=== PATIENT | male | born 1965 | race African-American/Black ===

== ENCOUNTER 2016-12-29 08:38 | Inpatient (IN) | payer OTHER ==
[2016-12-29 08:58] VITALS: BMI 25.8
--- NOTE | 2016-12-29 10:42 | HP ---
CIWA Score - CIWA Score Nausea/Vomitin Muscle Tremors: 3 Anxiety: 3 Agitation: 4-Moderately Restless Paroxysmal Sweats: 3 Orientation: 0-Oriented Tacttile Disturbances: 1-Very Mild Itch/Numbness Auditory Disturbances: 0-None Visual Disturbances: 0-None Headache: 1-Very Mild CIWA-Ar Total Score: 18 Admission ROS BHS - HPI Chief Complaint: alcohol withdrawal syndrome Allergies/Adverse Reactions: Allergies Allergy/AdvReac Type Severity Reaction Status Date / Time egg Allergy Severe Swelling Verified 12/29/16 10:14 No Known Drug Allergies Allergy Verified 12/29/16 10:14 History of Present Illness: 51 yo m with h/o alcohol use disorder, last detox at [facility] last year, now presenting requesting alcohol detox because of ELLIE. sweats, tremors, POLK. PMHX nicotine, cannabis dependence, HTN, asthma, no psychiatric history requesting psych eval. Has not been taking meds, c/o back pain. no h/o DTS or suicide attempts in past no suicidal ideation at present. craving has urges wants to go to rehab Exam Limitations: No Limitations - Ebola screening Have you traveled outside of the country in the last 21 days: No Have you had contact with anyone from an Ebola affected area: No Have you been sick,other than usual withdrawal symptoms: No Do you have a fever: No - Review of Systems Constitutional: Chills, Diaphoresis, Malaise, Night Sweats, Weight Stable EENT: reports: No Symptoms Reported Respiratory: reports: Wheezing (astham history) Cardiac: reports: No Symptoms Reported GI: reports: Nausea, Poor Appetite, Poor Fluid Intake : reports: No Symptoms Reported Musculoskeletal: reports: Back Pain (chronic pain) Integumentary: reports: Flushing, Sweating Endocrine: reports: No Symptoms Reported Hematology: reports: No Symptoms Reported Psychiatric: reports: Judgement Intact, Mood/Affect Appropiate, Orientated x3, Anxious, Depressed Other Systems: Reviewed and Negative Patient History - Patient Medical History Hx Anemia: No Hx Asthma: Yes Hx Chronic Obstructive Pulmonary Disease (COPD): No Hx Cancer: No Hx Cardiac Disorders: No Hx Congestive Heart Failure: No Hx Hypertension: Yes (Pt is on meds but is non compliant) Hx Hypercholesterolemia: No Hx Pacemaker: No HX Cerebrovascular Accident: No Hx Seizures: No (no h/o DTS) Hx Dementia: No Hx Diabetes: No Hx Gastrointestinal Disorders: No Hx Liver Disease: No Hx Genitourinary Disorders: No Hx Sexually Transmitted Disorders: No Hx Renal Disease (ESRD): No Hx Thyroid Disease: No Hx Human Immunodeficiency Virus (HIV): No Hx Hepatitis C: No Hx Depression: No Hx Suicide Attempt: No Hx Bipolar Disorder: No Hx Schizophrenia: No - Patient Surgical History Past Surgical History: Yes Hx Abdominal Surgery: (umbililcal hernia rep[air as child) Anesthesia Reaction: No - PPD History Previous Implant?: Yes Documented Results: Negative w/o proof Implanted On Prior [facility] Admission?: No PPD to be Administered?: Yes - Reproductive History Patient is a Female of Child Bearing Age (11 -55 yrs old): No Patient : No - Smoking Cessation Smoking history: Current every day smoker Have you smoked in the past 12 months: Yes Aproximately how many cigarettes per day: 20 Hx Chewing Tobacco Use: No Initiated information on smoking cessation: Yes 'Breaking Loose' booklet given: 12/29/16 - Substance & Tx. History Hx Alcohol Use: Yes Hx Substance Use: Yes Substance Use Type: Alcohol, Marijuana Hx Substance Use Treatment: Yes ([facility] 2016) - Substances Abused Alcohol Route: Oral Frequency: Daily Amount used: fifth of vodka/ 6pk beer and up Age of first use: 17 Date of Last Use: 12/29/16 Marijuana/Hashish Route: Smoking Frequency: Daily Amount used: 1 ounce Age of first use: 20 Date of Last Use: 12/27/16 Family Disease History - Family Disease History Family Disease History: Heart Disease: Father (HTN) Admission Physical Exam [facility] - Vital Signs Vital Signs: Vital Signs - 24 hr 12/29/16 08:54 Temperature 97.1 F L Pulse Rate 100 H Respiratory 18 Rate Blood Pressure 150/109 - Physical General Appearance: Yes: Nourished, Disheveled, Mild Distress, Obese, Irritable , Sweating, Anxious HEENTM: Yes: Within Normal Limits, EOMI, Hearing grossly Normal, Normal ENT Inspection, Normocephalic, Normal Voice, MERLE, Pharynx Normal Respiratory: Yes: Within Normal Limits, Chest Non-Tender, Lungs Clear, Normal Breath Sounds, No Respiratory Distress, No Accessory Muscle Use Neck: Yes: Within Normal Limits, No masses,lesions,Nodules, Supple, Trachea in good position Breast: Yes: Breast Exam Deferred Cardiology: Yes: Within Normal Limits, Regular Rhythm, Regular Rate, S1, S2 Abdominal: Yes: Normal Bowel Sounds, Non Tender, Soft, Protuberent, Distended Genitourinary: Yes: Within Normal Limits Back: Yes: Within Normal Limits, Normal Inspection Musculoskeletal: Yes: full range of Motion, Gait Steady, Pelvis Stable, Back pain, Muscle Pain (tender on palpation lower back) Extremities: Yes: Normal Capillary Refill, Normal Range of Motion, Non-Tender, Tremors Neurological: 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: 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 NML intact, Fully Oriented, Alert, Motor Strength 5/5, Depressed Affect Integumentary: Yes: Normal Color, Warm, Diaphoresis Lymphatic: Yes: Within Normal Limits - Addiitonal Findings: alcohol withdrawal sx present - Diagnostic (1) Alcohol dependence with uncomplicated withdrawal Current Visit: Yes Status: Acute (2) Cannabis dependence Current Visit: Yes Status: Acute (3) Nicotine dependence Current Visit: Yes Status: Acute (4) Asthma Current Visit: Yes Status: Acute (5) Hypertension Current Visit: Yes Status: Acute (6) Insomnia Current Visit: Yes Status: Acute (7) Back pain Current Visit: Yes Status: Acute Cleared for Admission [facility] - Detox or Rehab [facility] Level of Care: Medically Managed Detox Regimen/Protocol: Librium [facility] Breath Alcohol Content Breath Alcohol Content: 0.089 Urine Drug Screen - Results Drug Screen Negative: No Urine Drug Screen Results: THC-Marijuana
[2016-12-29] MEDS ORDERED: hydrOXYzine PAMOATE 50 MG CAPSULE (FP) PO PRN (10:48)
[2016-12-29] MEDS ORDERED: LOPERAMIDE HCL 2 MG CAPSULE PO PRN (10:48)
[2016-12-29] MEDS ORDERED: MENTHOL/PHENOL 1 EACH UD MM PRN (10:48)
[2016-12-29] MEDS ORDERED: P-EPHED 60MG/TRIPROLIDI 2.5MG TABLET PO PRN (10:48)
[2016-12-29] MEDS ORDERED: diphenhydrAMINE HCL 50 MG CAPSULE PO PRN (10:48)
[2016-12-29] MEDS ORDERED: MAGNESIUM CITRATE 300 ML BOTTLE PO PRN (10:48)
[2016-12-29] MEDS ORDERED: MAGNESIUM HYDROX 2400MG/30ML ORAL SUSPENSION 30 ML CUP PO PRN (10:48)
[2016-12-29] MEDS ORDERED: NICOTINE POLACRILEX 2 MG GUM BUC PRN (10:48)
[2016-12-29] MEDS ORDERED: guaiFENesin/D-METHORPHAN HB 10 ML UNIT-DOSE CUPS PO PRN (10:48)
[2016-12-29] MEDS ORDERED: MAG HYDROX/AL HYDROX/SIMETH 30 ML UNIT-DOSE CUP PO PRN (10:48)
[2016-12-29] MEDS ORDERED: chlordiazePOXIDE HCL 25 MG CAPSULE PO PRN (10:48)
[2016-12-29] MEDS ORDERED: ACETAMINOPHEN 325 MG TABLET (FP) PO PRN (10:48)
[2016-12-29] MEDS ORDERED: PATIENT'S OWN MEDICATION (NON-FORMULARY) (Fluticasone Propionate [Flovent Diskus] 110 MCG) IH SCH (11:00)
[2016-12-29] MEDS ORDERED: CYCLOBENZAPRINE HCL 5 MG TABLET PO ONE (11:55)
[2016-12-29] MEDS: amLODIPine BESYLATE 10 MG TABLET (FP) PO SCH (12:59)
[2016-12-29] MEDS: NICOTINE 14 MG/24 HOURS TOPICAL PATCH TD SCH (13:06)
[2016-12-29] MEDS: CYCLOBENZAPRINE HCL 5 MG TABLET PO SCH ×2 (14:21→22:06)
[2016-12-29] MEDS: IBUPROFEN 400 MG TABLET (FP) PO PRN (14:21)
[2016-12-29] MEDS: TOLNAFTATE 1% CREAM 15 GM TUBE TP SCH ×2 (14:23→22:06)
--- NOTE | 2016-12-29 14:52 | EKG ---
Test Reason : Blood Pressure : / mmHG Vent. Rate : 091 BPM Atrial Rate : 091 BPM P-R Int : 154 ms QRS Dur : 078 ms QT Int : 352 ms P-R-T Axes : 057 049 237 degrees QTc Int : 432 ms NORMAL SINUS RHYTHM POSSIBLE LEFT ATRIAL ENLARGEMENT LEFT VENTRICULAR HYPERTROPHY CANNOT RULE OUT SEPTAL INFARCT , AGE UNDETERMINED ABNORMAL ECG NO PREVIOUS ECGS AVAILABLE Confirmed by REYNALDO FIGUEROA MD ([id number]) on 12/29/2016 2:52:35 PM Referred By: Confirmed By:REYNALDO FIGUEROA MD
--- NOTE | 2016-12-29 15:11 | CONSULT ---
[facility] Psychiatric Consult - Data Date of interview: 12/29/16 Admission source: [facility] Identifying data: First admission to [facility] for this 51 y/o AA male seeking detox treatment on for alcohol and marihuana dependence.Patient is single,a father of six,homeless,unemployed and supported on Public Assistance. Substance Abuse History: Confirmed by the patient in this interview. Smoking history: Current every day smoker. Have you smoked in the past 12 months: Yes. Aproximately how many cigarettes per day: 20. Hx Chewing Tobacco Use: No. Initiated information on smoking cessation: Yes. 'Breaking Loose' booklet given : 12/29/16. - Substance & Tx. History. Hx Alcohol Use: Yes. Hx Substance Use : Yes. Substance Use Type: Alcohol, Marijuana. Hx Substance Use Treatment: Yes ([facility]). - Substances Abused. Alcohol. Route: Oral. Frequency: Daily. Amount used: fifth of vodka/ 6pk beer and up. Age of first use: 17. Date of Last Use: 12/29/16. Marijuana/Hashish. Route: Smoking. Frequency: Daily. Amount used: 1 ounce. Age of first use: 20. Date of Last Use: 12/27/16 Medical History: Hypertension,bronchial asthma,hernias (umbilical + left inguinal) and a history of right knee injury (patient wears brace). Psychiatric History: Patient denies. Physical/Sexual Abuse/Trauma History: Patient denies. Additional Comment: Urine Drug Screen Results: THC-Marijuana.Noted. Mental Status Exam - Mental Status Exam Alert and Oriented to: Time, Place, Person Cognitive Function: Good Patient Appearance: Well Groomed Mood: Hopeful, Euthymic Affect: Appropriate, Normal Range Patient Behavior: Fatigued, Appropriate, Cooperative Speech Pattern: Clear, Artificially Ventilated Thought Process: Intact, Goal Oriented Thought Disorder: Not Present Hallucinations: Denies Suicidal Ideation: Denies Homicidal Ideation: Denies Insight/Judgement: Poor Sleep: Poorly, Difficulty falling asleep Appetite: Good Muscle strength/Tone: Normal Gait/Station: Normal Psychiatric Findings - Problem List ([place] 1, 2,3) (1) Alcohol dependence with uncomplicated withdrawal Current Visit: Yes Status: Acute (2) Cannabis dependence Current Visit: Yes Status: Acute (3) Nicotine dependence Current Visit: Yes Status: Acute (4) Asthma Current Visit: Yes Status: Chronic (5) Back pain Current Visit: Yes Status: Chronic (6) Hypertension Current Visit: Yes Status: Chronic (7) Insomnia Current Visit: Yes Status: Acute - Initial Treatment Plan Initial Treatment Plan: Psychoeducation.Detoxification.Ambien 10 mg po hs prn.Patient is made aware of potential for parasomnias.He agrees with this careplan.Observation.
[2016-12-29 17:18] LABS: URINE APPEARANCE CLEAR; URINE BILIRUBIN NEGATIVE (NEGATIVE); URINE BLOOD NEGATIVE (NEGATIVE); URINE COLOR LTYELLOW; URINE GLUCOSE (UA) NEGATIVE (NEGATIVE); URINE KETONE NEGATIVE (NEGATIVE); URINE NITRITE NEGATIVE (NEGATIVE); URINE PROTEIN NEGATIVE (NEGATIVE); URINE UROBILINOGEN NEGATIVE mg/dL (0.2-1.0)
[2016-12-29] MEDS: chlordiazePOXIDE HCL 25 MG CAPSULE PO SCH ×2 (17:24→22:06)
[2016-12-29 21:33] LABS: URINE LEUK ESTERASE Negative (NEGATIVE)
[2016-12-29] MEDS: THIAMINE HCL 100 MG TABLET (FP) PO SCH (22:06)
[2016-12-29] MEDS: MONTELUKAST NA 10 MG TABLET PO SCH (22:06)
[2016-12-29] MEDS: ZOLPIDEM TARTRATE 10 MG TABLET (PARK CARE ONLY) PO PRN (22:08)
[2016-12-29] MEDS: ALBUTEROL SO4 18 GM HFA INHALER IH PRN (23:48)
[2016-12-30] MEDS: chlordiazePOXIDE HCL 25 MG CAPSULE PO SCH ×4 (06:18→22:16)
[2016-12-30] MEDS: CYCLOBENZAPRINE HCL 5 MG TABLET PO SCH ×3 (06:18→22:16)
[2016-12-30 10:04] LABS: MCH 20.4 pg (25.7-33.7); MCHC 29.4 g/dl (32.0-35.9); MEAN CELL VOLUME 69.4 fl (80-96); MEAN PLT VOLUME 8.8 fl (7.5-11.1); PLATELET COUNT 225 K/MM3 (134-434); RDW 21.5 % (11.9-15.9); WHITE BLOOD COUNT 3.8 K/mm3 (4.0-10.0)
[2016-12-30] MEDS: PRENATAL VITAMINS W/ FOLIC ACID TABLET (FP) PO SCH (10:07)
[2016-12-30] MEDS: amLODIPine BESYLATE 10 MG TABLET (FP) PO SCH (10:07)
[2016-12-30] MEDS: TOLNAFTATE 1% CREAM 15 GM TUBE TP SCH ×2 (10:07→22:17)
[2016-12-30] MEDS: NICOTINE 14 MG/24 HOURS TOPICAL PATCH TD SCH (10:08)
[2016-12-30 10:32] LABS: CALCIUM 8.3 mg/dL (8.5-10.1)
[2016-12-30 10:38] LABS: ALBUMIN 3.7 g/dl (3.4-5.0); ALK PHOS 136 U/L (45-117); ANION GAP 10 (8-16); BILIRUBIN,TOTAL 0.4 mg/dL (0.2-1.0); CO2 24 mmol/L (21-32); CREATININE 1.1 mg/dL (0.7-1.3); GLUCOSE,RANDOM 87 mg/dL (74-106); SGOT/AST 40 U/L (15-37); SGPT/ALT 57 U/L (12-78); TOT PROT 7.7 g/dl (6.4-8.2)
--- NOTE | 2016-12-30 11:17 | PN ---
[facility] CIWA - CIWA Score Nausea/Vomitin-No Nausea/No Vomiting Muscle Tremors: 4-Moderate,w/Arms Extend Anxiety: 3 Agitation: 2 Paroxysmal Sweats: 3 Orientation: 0-Oriented Tacttile Disturbances: 2-Mild Itch/Numbness/Burn Auditory Disturbances: 0-None Visual Disturbances: 2-Mild Sensitivity Headache: 0-None Present CIWA-Ar Total Score: 16 S Progress Note (SOAP) Subjective: Fatigue, Tremors, Sweating. Objective: PT. A & O X 3. NO ACUTE DISTRESS. 12/30/16 11:16 Vital Signs Temperature 96.5 F L 12/30/16 09:39 Pulse Rate 102 H 12/30/16 09:39 Respiratory Rate 18 12/30/16 09:39 Blood Pressure 153/106 12/30/16 09:39 O2 Sat by Pulse Oximetry (%) Laboratory Tests 12/29/16 12/29/16 12/30/16 11:20 15:30 05:30 WBC 3.8 L RBC 3.64 L Hgb 7.4 L Hct 25.3 L MCV 69.4 L MCH 20.4 L MCHC 29.4 L RDW 21.5 H Plt Count 225 MPV 8.8 Urine Color Ltyellow Urine Appearance Clear Urine pH 5.0 Ur Specific [place] 1.025 Urine Protein Negative Urine Glucose (UA) Negative Urine Ketones Negative Urine Blood Negative Urine Nitrite Negative Urine Bilirubin Negative Urine Urobilinogen Negative Ur Leukocyte Esterase Negative Hepatitis C Antibody 0.2 LABS NOTED. RESULTS OF RPR AND CMP PENDING. PT. DENIES ANY KNOWN HISTORY OF ANEMIA. PT. DENIES ANY UNUSUAL BLEEDING (WHILE BRUSHING TEETH, DURING BOWEL MOVEMENT, ETC.) 12/30/16 11:19 Assessment: 12/30/16 11:20 WITHDRAWAL SYMPTOMS. ANEMIA LEUKOPENIA. Plan: CONTINUE DETOX. FEOSOL, 325 MG PO TID WITH MEALS. REPEAT CBC ON 01/01/2017 FOR LOW ADMISSION VALUES.
[2016-12-30 12:30] LABS: SICKLE CELL SCREEN NEGATIVE (NEGATIVE)
[2016-12-30] MEDS: FERROUS SO4 325 MG TABLET (FP) PO SCH ×2 (13:59→18:03)
[2016-12-30] MEDS: ZOLPIDEM TARTRATE 10 MG TABLET (PARK CARE ONLY) PO PRN (22:16)
[2016-12-30] MEDS: THIAMINE HCL 100 MG TABLET (FP) PO SCH (22:16)
[2016-12-30] MEDS: MONTELUKAST NA 10 MG TABLET PO SCH (22:17)
[2016-12-31] MEDS: chlordiazePOXIDE HCL 25 MG CAPSULE PO SCH ×2 (05:43→10:23)
[2016-12-31] MEDS: CYCLOBENZAPRINE HCL 5 MG TABLET PO SCH ×3 (05:43→22:13)
[2016-12-31] MEDS: NICOTINE 14 MG/24 HOURS TOPICAL PATCH TD SCH (10:23)
[2016-12-31] MEDS: amLODIPine BESYLATE 10 MG TABLET (FP) PO SCH (10:23)
[2016-12-31] MEDS: FERROUS SO4 325 MG TABLET (FP) PO SCH ×3 (10:23→17:17)
[2016-12-31] MEDS: PRENATAL VITAMINS W/ FOLIC ACID TABLET (FP) PO SCH (10:23)
[2016-12-31] MEDS: TOLNAFTATE 1% CREAM 15 GM TUBE TP SCH ×2 (10:24→22:13)
--- NOTE | 2016-12-31 10:26 | PN ---
[facility] CIWA - CIWA Score Nausea/Vomitin-No Nausea/No Vomiting Muscle Tremors: 3 Anxiety: 4-Mod. Anxious/Guarded Agitation: 4-Moderately Restless Paroxysmal Sweats: 2 Orientation: 0-Oriented Tacttile Disturbances: 3-Moderate Itch/Numb/Burn Auditory Disturbances: 0-None Visual Disturbances: 0-None Headache: 0-None Present CIWA-Ar Total Score: 16 BHS Progress Note (SOAP) Subjective: ANXIETY,SWEATS,FATIGUE. Objective: 12/31/16 10:25 Vital Signs Temperature 96.9 F L 12/31/16 09:47 Pulse Rate 109 H 12/31/16 09:47 Respiratory Rate 18 12/31/16 09:47 Blood Pressure 146/100 12/31/16 09:47 O2 Sat by Pulse Oximetry (%) Laboratory Last Values WBC 3.8 K/mm3 (4.0-10.0) L 12/30/16 05:30 RBC 3.64 M/mm3 (4.00-5.60) L 12/30/16 05:30 Hgb 7.4 GM/dL (11.7-16.9) L 12/30/16 05:30 Hct 25.3 % (35.4-49) L 12/30/16 05:30 MCV 69.4 fl (80-96) L 12/30/16 05:30 MCH 20.4 pg (25.7-33.7) L 12/30/16 05:30 MCHC 29.4 g/dl (32.0-35.9) L 12/30/16 05:30 RDW 21.5 % (11.9-15.9) H 12/30/16 05:30 Plt Count 225 K/MM3 (134-434) 12/30/16 05:30 MPV 8.8 fl (7.5-11.1) 12/30/16 05:30 Sickle Cell Screen Negative (NEGATIVE) 12/30/16 05:30 Sodium 142 mmol/L (136-145) 12/30/16 05:30 Potassium 3.7 mmol/L (3.5-5.1) 12/30/16 05:30 Chloride 108 mmol/L (98-107) H 12/30/16 05:30 Carbon Dioxide 24 mmol/L (21-32) 12/30/16 05:30 Anion Gap 10 (8-16) 12/30/16 05:30 BUN 13 mg/dL (7-18) 12/30/16 05:30 Creatinine 1.1 mg/dL (0.7-1.3) 12/30/16 05:30 Creat Clearance w eGFR > 60 (>60) 12/30/16 05:30 Random Glucose 87 mg/dL (74-106) 12/30/16 05:30 Calcium 8.3 mg/dL (8.5-10.1) L 12/30/16 05:30 Total Bilirubin 0.4 mg/dL (0.2-1.0) 12/30/16 05:30 AST 40 U/L (15-37) H 12/30/16 05:30 ALT 57 U/L (12-78) 12/30/16 05:30 Alkaline Phosphatase 136 U/L (45-117) H 12/30/16 05:30 Total Protein 7.7 g/dl (6.4-8.2) 12/30/16 05:30 Albumin 3.7 g/dl (3.4-5.0) 12/30/16 05:30 Urine Color Ltyellow 12/29/16 15:30 Urine Appearance Clear 12/29/16 15:30 Urine pH 5.0 (5.0-8.0) 12/29/16 15:30 Ur Specific [place] 1.025 (1.005-1.025) 12/29/16 15:30 Urine Protein Negative (NEGATIVE) 12/29/16 15:30 Urine Glucose (UA) Negative (NEGATIVE) 12/29/16 15:30 Urine Ketones Negative (NEGATIVE) 12/29/16 15:30 Urine Blood Negative (NEGATIVE) 12/29/16 15:30 Urine Nitrite Negative (NEGATIVE) 12/29/16 15:30 Urine Bilirubin Negative (NEGATIVE) 12/29/16 15:30 Urine Urobilinogen Negative mg/dL (0.2-1.0) 12/29/16 15:30 Ur Leukocyte Esterase Negative (NEGATIVE) 12/29/16 15:30 RPR Titer Reactive 1:2 (NONREACTIVE) H 12/30/16 05:30 Hepatitis C Antibody 0.2 s/co ratio (0.0-0.9) 12/29/16 11:20 LAB NOTED [facility] PENDING Laboratory Last Values WBC 3.8 K/mm3 (4.0-10.0) L 12/30/16 05:30 RBC 3.64 M/mm3 (4.00-5.60) L 12/30/16 05:30 Hgb 7.4 GM/dL (11.7-16.9) L 12/30/16 05:30 Hct 25.3 % (35.4-49) L 12/30/16 05:30 MCV 69.4 fl (80-96) L 12/30/16 05:30 MCH 20.4 pg (25.7-33.7) L 12/30/16 05:30 MCHC 29.4 g/dl (32.0-35.9) L 12/30/16 05:30 RDW 21.5 % (11.9-15.9) H 12/30/16 05:30 Plt Count 225 K/MM3 (134-434) 12/30/16 05:30 MPV 8.8 fl (7.5-11.1) 12/30/16 05:30 Sickle Cell Screen Negative (NEGATIVE) 12/30/16 05:30 Sodium 142 mmol/L (136-145) 12/30/16 05:30 Potassium 3.7 mmol/L (3.5-5.1) 12/30/16 05:30 Chloride 108 mmol/L (98-107) H 12/30/16 05:30 Carbon Dioxide 24 mmol/L (21-32) 12/30/16 05:30 Anion Gap 10 (8-16) 12/30/16 05:30 BUN 13 mg/dL (7-18) 12/30/16 05:30 Creatinine 1.1 mg/dL (0.7-1.3) 12/30/16 05:30 Creat Clearance w eGFR > 60 (>60) 12/30/16 05:30 Random Glucose 87 mg/dL (74-106) 12/30/16 05:30 Calcium 8.3 mg/dL (8.5-10.1) L 12/30/16 05:30 Total Bilirubin 0.4 mg/dL (0.2-1.0) 12/30/16 05:30 AST 40 U/L (15-37) H 12/30/16 05:30 ALT 57 U/L (12-78) 12/30/16 05:30 Alkaline Phosphatase 136 U/L (45-117) H 12/30/16 05:30 Total Protein 7.7 g/dl (6.4-8.2) 12/30/16 05:30 Albumin 3.7 g/dl (3.4-5.0) 12/30/16 05:30 Urine Color Ltyellow 12/29/16 15:30 Urine Appearance Clear 12/29/16 15:30 Urine pH 5.0 (5.0-8.0) 12/29/16 15:30 Ur Specific [place] 1.025 (1.005-1.025) 12/29/16 15:30 Urine Protein Negative (NEGATIVE) 12/29/16 15:30 Urine Glucose (UA) Negative (NEGATIVE) 12/29/16 15:30 Urine Ketones Negative (NEGATIVE) 12/29/16 15:30 Urine Blood Negative (NEGATIVE) 12/29/16 15:30 Urine Nitrite Negative (NEGATIVE) 12/29/16 15:30 Urine Bilirubin Negative (NEGATIVE) 12/29/16 15:30 Urine Urobilinogen Negative mg/dL (0.2-1.0) 12/29/16 15:30 Ur Leukocyte Esterase Negative (NEGATIVE) 12/29/16 15:30 RPR Titer Reactive 1:2 (NONREACTIVE) H 12/30/16 05:30 T.pallidum Ab ([facility]HA) Reactive (NONREACTIVE) 12/30/16 05:30 Hepatitis C Antibody 0.2 s/co ratio (0.0-0.9) 12/29/16 11:20 PT REPORTS PREVIOUS TREATMENT WITH "3 SHOTS OF PENICILLIN". DENIES RE-EXPOSURE. Assessment: 12/31/16 10:25 WITHDRAWAL SX HX SYPHILIS WITH TREATMENT Plan: CONTINUE DETOX ON
[2016-12-31] MEDS: chlordiazePOXIDE 5 MG CAPSULE PO SCH ×2 (17:18→22:13)
[2016-12-31] MEDS: THIAMINE HCL 100 MG TABLET (FP) PO SCH (22:12)
[2016-12-31] MEDS: ZOLPIDEM TARTRATE 10 MG TABLET (PARK CARE ONLY) PO PRN (22:12)
[2016-12-31] MEDS: MONTELUKAST NA 10 MG TABLET PO SCH (22:13)
[2017-01-01] MEDS: ALBUTEROL SO4 18 GM HFA INHALER IH PRN ×2 (00:46→19:31)
[2017-01-01] MEDS: CYCLOBENZAPRINE HCL 5 MG TABLET PO SCH ×3 (05:53→22:23)
[2017-01-01] MEDS: chlordiazePOXIDE 5 MG CAPSULE PO SCH ×2 (05:53→10:19)
[2017-01-01] MEDS: IBUPROFEN 400 MG TABLET (FP) PO PRN (05:55)
[2017-01-01] MEDS: FERROUS SO4 325 MG TABLET (FP) PO SCH ×3 (09:00→16:46)
--- NOTE | 2017-01-01 10:04 | PN ---
S Progress Note (SOAP) Subjective: DECREASED ANXIETY,SWEATS,TREMORS. ALERT O X 3. NAD. DETOX PROCEEDING WELL. Objective: 01/01/17 10:04 Vital Signs Temperature 96.1 F L 01/01/17 09:10 Pulse Rate 110 H 01/01/17 09:10 Respiratory Rate 20 01/01/17 09:10 Blood Pressure 148/92 01/01/17 09:10 O2 Sat by Pulse Oximetry (%) Laboratory Last Values WBC 3.8 K/mm3 (4.0-10.0) L 12/30/16 05:30 RBC 3.64 M/mm3 (4.00-5.60) L 12/30/16 05:30 Hgb 7.4 GM/dL (11.7-16.9) L 12/30/16 05:30 Hct 25.3 % (35.4-49) L 12/30/16 05:30 MCV 69.4 fl (80-96) L 12/30/16 05:30 MCH 20.4 pg (25.7-33.7) L 12/30/16 05:30 MCHC 29.4 g/dl (32.0-35.9) L 12/30/16 05:30 RDW 21.5 % (11.9-15.9) H 12/30/16 05:30 Plt Count 225 K/MM3 (134-434) 12/30/16 05:30 MPV 8.8 fl (7.5-11.1) 12/30/16 05:30 Sickle Cell Screen Negative (NEGATIVE) 12/30/16 05:30 Sodium 142 mmol/L (136-145) 12/30/16 05:30 Potassium 3.7 mmol/L (3.5-5.1) 12/30/16 05:30 Chloride 108 mmol/L (98-107) H 12/30/16 05:30 Carbon Dioxide 24 mmol/L (21-32) 12/30/16 05:30 Anion Gap 10 (8-16) 12/30/16 05:30 BUN 13 mg/dL (7-18) 12/30/16 05:30 Creatinine 1.1 mg/dL (0.7-1.3) 12/30/16 05:30 Creat Clearance w eGFR > 60 (>60) 12/30/16 05:30 Random Glucose 87 mg/dL (74-106) 12/30/16 05:30 Calcium 8.3 mg/dL (8.5-10.1) L 12/30/16 05:30 Total Bilirubin 0.4 mg/dL (0.2-1.0) 12/30/16 05:30 AST 40 U/L (15-37) H 12/30/16 05:30 ALT 57 U/L (12-78) 12/30/16 05:30 Alkaline Phosphatase 136 U/L (45-117) H 12/30/16 05:30 Total Protein 7.7 g/dl (6.4-8.2) 12/30/16 05:30 Albumin 3.7 g/dl (3.4-5.0) 12/30/16 05:30 Urine Color Ltyellow 12/29/16 15:30 Urine Appearance Clear 12/29/16 15:30 Urine pH 5.0 (5.0-8.0) 12/29/16 15:30 Ur Specific [place] 1.025 (1.005-1.025) 12/29/16 15:30 Urine Protein Negative (NEGATIVE) 12/29/16 15:30 Urine Glucose (UA) Negative (NEGATIVE) 12/29/16 15:30 Urine Ketones Negative (NEGATIVE) 12/29/16 15:30 Urine Blood Negative (NEGATIVE) 12/29/16 15:30 Urine Nitrite Negative (NEGATIVE) 12/29/16 15:30 Urine Bilirubin Negative (NEGATIVE) 12/29/16 15:30 Urine Urobilinogen Negative mg/dL (0.2-1.0) 12/29/16 15:30 Ur Leukocyte Esterase Negative (NEGATIVE) 12/29/16 15:30 RPR Titer Reactive 1:2 (NONREACTIVE) H 12/30/16 05:30 T.pallidum Ab (MHA) Reactive (NONREACTIVE) 12/30/16 05:30 Hepatitis C Antibody 0.2 s/co ratio (0.0-0.9) 12/29/16 11:20 Assessment: 01/01/17 10:04 DECREASED WITHDRAWAL SX Plan: CONTINUE DETOX
[2017-01-01] MEDS: PRENATAL VITAMINS W/ FOLIC ACID TABLET (FP) PO SCH (10:19)
[2017-01-01] MEDS: TOLNAFTATE 1% CREAM 15 GM TUBE TP SCH ×2 (10:19→22:22)
[2017-01-01] MEDS: NICOTINE 14 MG/24 HOURS TOPICAL PATCH TD SCH (10:19)
[2017-01-01] MEDS: amLODIPine BESYLATE 10 MG TABLET (FP) PO SCH (10:19)
[2017-01-01 13:39] LABS: BASOPHIL 1.7 % (0-2.0); EOSINOPHIL 4.2 % (0-4.5); MCH 20.5 pg (25.7-33.7); MCHC 29.7 g/dl (32.0-35.9); MEAN PLT VOLUME 8.7 fl (7.5-11.1); PLATELET COUNT 299 K/MM3 (134-434); RDW 21.8 % (11.9-15.9); WHITE BLOOD COUNT 4.5 K/mm3 (4.0-10.0)
[2017-01-01] MEDS: chlordiazePOXIDE HCL 10 MG CAPSULE PO SCH ×2 (16:46→22:23)
[2017-01-01 20:10] LABS: ANISOCYTOSIS 2+; HYPOCHROMIA 2+; MICROCYTOSIS 2+; PLATELET COMMENT2 NO CLOTTING DETECTED; PLATELET COMMENT3 MOD LARGE PLTS; PLATELET ESTIMATE ADEQUATE (NORMAL); POLYCHROMASIA 1+
[2017-01-01] MEDS: ZOLPIDEM TARTRATE 10 MG TABLET (PARK CARE ONLY) PO PRN (21:58)
[2017-01-01] MEDS: MONTELUKAST NA 10 MG TABLET PO SCH (22:26)
[2017-01-01] MEDS: THIAMINE HCL 100 MG TABLET (FP) PO SCH (22:26)
[2017-01-02] MEDS: chlordiazePOXIDE HCL 10 MG CAPSULE PO SCH ×2 (05:27→10:22)
[2017-01-02] MEDS: CYCLOBENZAPRINE HCL 5 MG TABLET PO SCH (05:27)
[2017-01-02] MEDS: FERROUS SO4 325 MG TABLET (FP) PO SCH (07:36)
--- NOTE | 2017-01-02 09:15 | DS ---
[facility] Detox Discharge Summary Admission Date: 12/29/16 Discharge Date: 01/02/17 - History Present History: Alcohol Dependence, Cannabis Dependence Additional Comments: going to rehab at [facility] Pertinent Past History: nicotined dependence, insomnia, anxiety, depression - Physical Exam Results Vital Signs: Vital Signs Temperature 97.1 F L 01/02/17 06:09 Pulse Rate 101 H 01/02/17 06:09 Respiratory Rate 18 01/02/17 06:09 Blood Pressure 130/78 01/02/17 06:09 O2 Sat by Pulse Oximetry (%) Pertinent Admission Physical Exam Findings: withdrawal sx - Treatment Hospital Course: Detox Protocol Followed, Detoxed Safely, Responded well, Discharged Condition Good, Rehab Referral Accepted - Medication Discharge Medications: Ambulatory Orders Albuterol Sulfate Inhaler - [Ventolin HFA Inhaler -] 2 inh PO Q4H PRN #1 inh Amlodipine Besylate [Norvasc -] 10 mg PO DAILY #30 tab 01/02/17 Montelukast Na [Singulair -] 10 mg PO HS #30 tab 01/02/17 Ranitidine [Zantac -] 150 mg PO BID #30 tab 01/02/17 - Diagnosis (1) Alcohol dependence with uncomplicated withdrawal Current Visit: Yes Status: Acute (2) Cannabis dependence Current Visit: Yes Status: Acute (3) Nicotine dependence Current Visit: Yes Status: Acute Qualifiers: Nicotine product type: cigarettes Substance use status: in withdrawal Qualified Code(s): F17.213 - Nicotine dependence, cigarettes, with withdrawal; F17.213 - Nicotine dependence, cigarettes, with withdrawal (4) Asthma Current Visit: Yes Status: Chronic Qualifiers: Asthma severity: mild Asthma complication type: uncomplicated (5) Hypertension Current Visit: Yes Status: Chronic Qualifiers: Hypertension type: essential hypertension Qualified Code(s): I10 - Essential (primary) hypertension; I10 - Essential (primary) hypertension; I10 - Essential (primary) hypertension (6) Insomnia Current Visit: Yes Status: Acute (7) Back pain Current Visit: Yes Status: Chronic Qualifiers: Back pain location: back pain in unspecified location - AMA Did Patient Leave Against Medical Advice: No
[2017-01-02 10:21] VITALS: BP 144/97; PULSE 104; TEMP 97.8
[2017-01-02] MEDS: TOLNAFTATE 1% CREAM 15 GM TUBE TP SCH (10:22)
[2017-01-02] MEDS: PRENATAL VITAMINS W/ FOLIC ACID TABLET (FP) PO SCH (10:22)
[2017-01-02] MEDS: amLODIPine BESYLATE 10 MG TABLET (FP) PO SCH (10:22)
[2017-01-02] MEDS: NICOTINE 14 MG/24 HOURS TOPICAL PATCH TD SCH (10:23)
== END 2017-01-02 12:22 | disposition other institution (70) | DRG 775 ==
LOC: YASAS 08:38 → Y3N 11:50
PROVIDERS: ADMIT Internal Medicine; ATTEND Internal Medicine
PROC: HZ2ZZZZ Detoxification Services for Substance Abuse Treatment (ICD-10-PCS; principal; 2016-12-29)
DX: F10.230 Alcohol dependence with withdrawal, uncomplicated (principal); F12.20 Cannabis dependence, uncomplicated; F17.213 Nicotine dependence, cigarettes, with withdrawal; I10 Essential (primary) hypertension; J45.30 Mild persistent asthma, uncomplicated; G47.00 Insomnia, unspecified; M54.9 Dorsalgia, unspecified; G89.29 Other chronic pain; K21.9 Gastro-esophageal reflux disease without esophagitis; D64.9 Anemia, unspecified; D72.819 Decreased white blood cell count, unspecified; Z87.438 Personal history of other diseases of male genital organs; Z91.012 Allergy to eggs; Z91.14 Patient's other noncompliance with medication regimen
CPT/HCPCS: 36415; 80053; 81003; 85025; 85027; 85660; 86593; 86780; 86803; 93005; 93010

== ENCOUNTER 2017-01-02 12:28 | Inpatient (IN) | payer OTHER ==
--- NOTE | 2017-01-02 13:52 | HP ---
Psychiatrist Admission - Data Date of interview: 01/02/17 Admission source: 3N Identifying data: Mr Gunn is a 51 years old single Black male, father of 6 children, unemployed on public assistance, homeless Medical History: Significant for hypertension, bronchial asthma, umbilical and left inguinal hernia and right knee injury (patient wears brace). Smokes cigaretes 1ppd Psychiatric History: Denies history of previous psychiatric treatment Physical/Sexual Abuse/Trauma History: Denies history of cerbal, physical or sexual abuse. Additional Comment: Reports history of multiple previous arests including one felony conviction. Denies being on parole/probation Vital Signs: Vital Signs - 24 hr 01/02/17 12:59 Temperature 97.7 F Pulse Rate 110 H Respiratory 18 Rate Blood Pressure 137/71 Allergies/Adverse Reactions: Allergies Allergy/AdvReac Type Severity Reaction Status Date / Time egg Allergy Severe Swelling Verified 12/29/16 10:14 No Known Drug Allergies Allergy Verified 12/29/16 10:14 Date of last physical exam: 12/29/16 Concur with the findings of this exam: Yes - Substance Abuse/Tx History Hx Alcohol Use: Yes Hx Substance Use: Yes Substance Use Type: Alcohol (Started drinking alcohol at age 17, consumes a fifth pint of vodka & a 6pk of beer daily. Last drank on 12/29/16), Marijuana ( Started smoking marijuana at age 20, consumes one oz daily. Last smkoes on 12/27) Hx Substance Use Treatment: Yes (2 previous inpt detox admissions.One outpt rehab @ [facility]) Mental Status Exam - Mental Status Exam Alert and Oriented to: Time, Place, Person Cognitive Function: Fair Patient Appearance: Well Groomed Mood: Hopeful, Euthymic Affect: Constricted Patient Behavior: Cooperative Speech Pattern: Clear Voice Loudness: Normal Thought Process: Intact, Goal Oriented Hallucinations: Denies Suicidal Ideation: Denies Homicidal Ideation: Denies Insight/Judgement: Fair Sleep: Poorly Appetite: Good Muscle strength/Tone: Normal Gait/Station: Normal Psychiatric Findings - Problem List ([place] 1, 2,3) (1) Alcohol dependence Current Visit: Yes Status: Acute (2) Cannabis dependence Current Visit: No Status: Acute (3) Nicotine dependence Current Visit: No Status: Acute Qualifiers: Nicotine product type: cigarettes Substance use status: in withdrawal Qualified Code(s): F17.213 - Nicotine dependence, cigarettes, with withdrawal; F17.213 - Nicotine dependence, cigarettes, with withdrawal (4) Substance-induced sleep disorder Current Visit: Yes Status: Acute - Initial Treatment Plan Initial Treatment Plan: 1) Start Belsomra 10 mg po HS prn for insomnia. 2) Monitor progress
[2017-01-02] MEDS ORDERED: MENTHOL/PHENOL 1 EACH UD MM PRN (15:05)
[2017-01-02] MEDS ORDERED: MAGNESIUM HYDROX 2400MG/30ML ORAL SUSPENSION 30 ML CUP PO PRN (15:05)
[2017-01-02] MEDS ORDERED: MAGNESIUM CITRATE 300 ML BOTTLE PO PRN (15:05)
[2017-01-02] MEDS ORDERED: ACETAMINOPHEN 325 MG TABLET (FP) PO PRN (15:05)
[2017-01-02] MEDS ORDERED: guaiFENesin/D-METHORPHAN HB 10 ML UNIT-DOSE CUPS PO PRN (15:05)
[2017-01-02] MEDS ORDERED: LOPERAMIDE HCL 2 MG CAPSULE PO PRN (15:05)
[2017-01-02] MEDS ORDERED: P-EPHED 60MG/TRIPROLIDI 2.5MG TABLET PO PRN (15:05)
[2017-01-02] MEDS ORDERED: NICOTINE POLACRILEX 2 MG GUM BUC PRN (15:05)
[2017-01-02] MEDS ORDERED: MAG HYDROX/AL HYDROX/SIMETH 30 ML UNIT-DOSE CUP PO PRN (15:05)
--- NOTE | 2017-01-02 15:05 | HP ---
[facility] Rehab Assess/Revision - Admission History Admitted to Rehab from: [facility] [place] Date of Admission to Rehab: 01/02/17 - Vital signs Vital Signs: Vital Signs Period Temp Pulse Resp BP Sys/[place] Pulse Ox Last 24 Hr 97.7 F 110 18 137/71 - Findings Detox History & Physical reviewed: Yes Concur with findings: Yes Inpatient Rehab Admission - Initial Determination Are CD services needed?: Yes Free of communicable disease: Yes Not in need of hospitalization: Yes - Rehab Admission Criteria Previous failed treatment: Yes Poor recovery environment: Yes Lacks judgement: Yes Patient is meeting Inpatient Rehab admission criteria:: Yes
[2017-01-02] MEDS: FERROUS SO4 325 MG TABLET (FP) PO SCH (17:07)
[2017-01-02] MEDS: RANITIDINE HCL 150 MG TABLET (FP) PO SCH (21:47)
[2017-01-02] MEDS: MONTELUKAST NA 10 MG TABLET PO SCH (21:47)
[2017-01-02] MEDS: BUDESONIDE/FORMETEROL FUMARATE 80/4.5 mcg INHALER IH SCH (21:47)
[2017-01-02] MEDS: THIAMINE HCL 100 MG TABLET (FP) PO SCH (21:47)
[2017-01-02] MEDS: SUVOREXANT 10 MG TABLET PO PRN (21:50)
[2017-01-03] MEDS: FERROUS SO4 325 MG TABLET (FP) PO SCH ×2 (07:30→17:52)
[2017-01-03] MEDS: RANITIDINE HCL 150 MG TABLET (FP) PO SCH ×2 (10:49→22:17)
[2017-01-03] MEDS: amLODIPine BESYLATE 10 MG TABLET (FP) PO SCH (10:49)
[2017-01-03] MEDS: ALBUTEROL SO4 18 GM HFA INHALER IH PRN (10:49)
[2017-01-03] MEDS: PRENATAL VITAMINS W/ FOLIC ACID TABLET (FP) PO SCH (10:49)
[2017-01-03] MEDS: BUDESONIDE/FORMETEROL FUMARATE 80/4.5 mcg INHALER IH SCH ×2 (10:49→22:17)
[2017-01-03] MEDS: SODIUM CHLORIDE NASAL SPRAY 44 ML BOTTLE NS PRN ×2 (10:49→22:18)
[2017-01-03] MEDS: NICOTINE 21 MG/24 HOURS TOPICAL PATCH TD SCH (10:52)
[2017-01-03] MEDS: MONTELUKAST NA 10 MG TABLET PO SCH (22:17)
[2017-01-03] MEDS: THIAMINE HCL 100 MG TABLET (FP) PO SCH (22:18)
[2017-01-04] MEDS: FERROUS SO4 325 MG TABLET (FP) PO SCH ×2 (07:07→16:45)
[2017-01-04] MEDS: RANITIDINE HCL 150 MG TABLET (FP) PO SCH ×2 (10:27→21:52)
[2017-01-04] MEDS: PRENATAL VITAMINS W/ FOLIC ACID TABLET (FP) PO SCH (10:27)
[2017-01-04] MEDS: amLODIPine BESYLATE 10 MG TABLET (FP) PO SCH (10:28)
[2017-01-04] MEDS: SODIUM CHLORIDE NASAL SPRAY 44 ML BOTTLE NS PRN ×2 (10:29→16:46)
[2017-01-04] MEDS: BUDESONIDE/FORMETEROL FUMARATE 80/4.5 mcg INHALER IH SCH ×2 (10:29→21:52)
[2017-01-04] MEDS: NICOTINE 21 MG/24 HOURS TOPICAL PATCH TD SCH (10:56)
[2017-01-04] MEDS: THIAMINE HCL 100 MG TABLET (FP) PO SCH (21:52)
[2017-01-04] MEDS: MONTELUKAST NA 10 MG TABLET PO SCH (21:52)
[2017-01-04] MEDS: TOLNAFTATE 1% CREAM 15 GM TUBE TP SCH (21:53)
[2017-01-04] MEDS: SUVOREXANT 10 MG TABLET PO PRN (21:54)
[2017-01-05] MEDS: FERROUS SO4 325 MG TABLET (FP) PO SCH ×2 (07:30→16:48)
[2017-01-05] MEDS: TOLNAFTATE 1% CREAM 15 GM TUBE TP SCH ×2 (10:41→22:07)
[2017-01-05] MEDS: RANITIDINE HCL 150 MG TABLET (FP) PO SCH ×2 (10:41→22:05)
[2017-01-05] MEDS: PRENATAL VITAMINS W/ FOLIC ACID TABLET (FP) PO SCH (10:41)
[2017-01-05] MEDS: amLODIPine BESYLATE 10 MG TABLET (FP) PO SCH (10:41)
[2017-01-05] MEDS: BUDESONIDE/FORMETEROL FUMARATE 80/4.5 mcg INHALER IH SCH ×2 (10:41→22:07)
[2017-01-05] MEDS: SODIUM CHLORIDE NASAL SPRAY 44 ML BOTTLE NS PRN ×2 (10:42→22:07)
[2017-01-05] MEDS: NICOTINE 21 MG/24 HOURS TOPICAL PATCH TD SCH (10:42)
[2017-01-05] MEDS: THIAMINE HCL 100 MG TABLET (FP) PO SCH (22:05)
[2017-01-05] MEDS: MONTELUKAST NA 10 MG TABLET PO SCH (22:05)
[2017-01-05] MEDS: hydrOXYzine PAMOATE 50 MG CAPSULE (FP) PO PRN (22:07)
[2017-01-05] MEDS: DOCUSATE SODIUM 100 MG CAPSULE (FP) PO SCH (22:08)
[2017-01-06] MEDS: FERROUS SO4 325 MG TABLET (FP) PO SCH ×3 (07:58→16:35)
[2017-01-06] MEDS: NICOTINE 21 MG/24 HOURS TOPICAL PATCH TD SCH (10:47)
[2017-01-06] MEDS: PRENATAL VITAMINS W/ FOLIC ACID TABLET (FP) PO SCH (10:47)
[2017-01-06] MEDS: RANITIDINE HCL 150 MG TABLET (FP) PO SCH ×2 (10:47→21:53)
[2017-01-06] MEDS: BUDESONIDE/FORMETEROL FUMARATE 80/4.5 mcg INHALER IH SCH ×2 (10:48→21:53)
[2017-01-06] MEDS: amLODIPine BESYLATE 10 MG TABLET (FP) PO SCH (10:48)
[2017-01-06] MEDS: TOLNAFTATE 1% CREAM 15 GM TUBE TP SCH ×2 (10:49→21:53)
[2017-01-06] MEDS: ALBUTEROL SO4 18 GM HFA INHALER IH PRN (14:34)
[2017-01-06] MEDS: SODIUM CHLORIDE NASAL SPRAY 44 ML BOTTLE NS PRN ×2 (16:36→22:07)
[2017-01-06] MEDS: THIAMINE HCL 100 MG TABLET (FP) PO SCH (21:52)
[2017-01-06] MEDS: DOCUSATE SODIUM 100 MG CAPSULE (FP) PO SCH (21:53)
[2017-01-06] MEDS: diphenhydrAMINE HCL 50 MG CAPSULE PO PRN (21:53)
[2017-01-06] MEDS: MONTELUKAST NA 10 MG TABLET PO SCH (21:53)
[2017-01-07] MEDS: FERROUS SO4 325 MG TABLET (FP) PO SCH ×3 (07:35→16:44)
[2017-01-07] MEDS: ALBUTEROL SO4 18 GM HFA INHALER IH PRN (08:50)
[2017-01-07] MEDS: RANITIDINE HCL 150 MG TABLET (FP) PO SCH ×2 (10:44→21:59)
[2017-01-07] MEDS: NICOTINE 21 MG/24 HOURS TOPICAL PATCH TD SCH (10:44)
[2017-01-07] MEDS: BUDESONIDE/FORMETEROL FUMARATE 80/4.5 mcg INHALER IH SCH ×2 (10:44→22:00)
[2017-01-07] MEDS: amLODIPine BESYLATE 10 MG TABLET (FP) PO SCH (10:44)
[2017-01-07] MEDS: PRENATAL VITAMINS W/ FOLIC ACID TABLET (FP) PO SCH (10:45)
[2017-01-07] MEDS: TOLNAFTATE 1% CREAM 15 GM TUBE TP SCH ×2 (10:45→22:02)
[2017-01-07] MEDS: SODIUM CHLORIDE NASAL SPRAY 44 ML BOTTLE NS PRN ×2 (10:46→22:00)
[2017-01-07] MEDS: DOCUSATE SODIUM 100 MG CAPSULE (FP) PO SCH (21:59)
[2017-01-07] MEDS: THIAMINE HCL 100 MG TABLET (FP) PO SCH (21:59)
[2017-01-07] MEDS: MONTELUKAST NA 10 MG TABLET PO SCH (21:59)
[2017-01-07] MEDS: diphenhydrAMINE HCL 50 MG CAPSULE PO PRN (22:00)
[2017-01-08] MEDS: FERROUS SO4 325 MG TABLET (FP) PO SCH ×3 (07:38→16:50)
[2017-01-08] MEDS: SODIUM CHLORIDE NASAL SPRAY 44 ML BOTTLE NS PRN ×2 (07:39→22:07)
[2017-01-08] MEDS: PRENATAL VITAMINS W/ FOLIC ACID TABLET (FP) PO SCH (10:47)
[2017-01-08] MEDS: RANITIDINE HCL 150 MG TABLET (FP) PO SCH ×2 (10:47→22:02)
[2017-01-08] MEDS: amLODIPine BESYLATE 10 MG TABLET (FP) PO SCH (10:47)
[2017-01-08] MEDS: NICOTINE 21 MG/24 HOURS TOPICAL PATCH TD SCH (10:47)
[2017-01-08] MEDS: BUDESONIDE/FORMETEROL FUMARATE 80/4.5 mcg INHALER IH SCH ×2 (10:48→22:02)
[2017-01-08] MEDS: TOLNAFTATE 1% CREAM 15 GM TUBE TP SCH ×2 (10:49→22:07)
[2017-01-08] MEDS: DOCUSATE SODIUM 100 MG CAPSULE (FP) PO SCH (22:01)
[2017-01-08] MEDS: THIAMINE HCL 100 MG TABLET (FP) PO SCH (22:02)
[2017-01-08] MEDS: MONTELUKAST NA 10 MG TABLET PO SCH (22:02)
[2017-01-08] MEDS: diphenhydrAMINE HCL 50 MG CAPSULE PO PRN (22:05)
[2017-01-09] MEDS: FERROUS SO4 325 MG TABLET (FP) PO SCH ×3 (07:49→17:39)
[2017-01-09] MEDS: amLODIPine BESYLATE 10 MG TABLET (FP) PO SCH (10:22)
[2017-01-09] MEDS: RANITIDINE HCL 150 MG TABLET (FP) PO SCH ×2 (10:22→21:51)
[2017-01-09] MEDS: NICOTINE 21 MG/24 HOURS TOPICAL PATCH TD SCH (10:23)
[2017-01-09] MEDS: TOLNAFTATE 1% CREAM 15 GM TUBE TP SCH ×2 (10:23→21:53)
[2017-01-09] MEDS: PRENATAL VITAMINS W/ FOLIC ACID TABLET (FP) PO SCH (10:23)
[2017-01-09] MEDS: BUDESONIDE/FORMETEROL FUMARATE 80/4.5 mcg INHALER IH SCH ×2 (10:23→21:52)
[2017-01-09] MEDS: DOCUSATE SODIUM 100 MG CAPSULE (FP) PO SCH (21:51)
[2017-01-09] MEDS: THIAMINE HCL 100 MG TABLET (FP) PO SCH (21:52)
[2017-01-09] MEDS: diphenhydrAMINE HCL 50 MG CAPSULE PO PRN (21:52)
[2017-01-09] MEDS: MONTELUKAST NA 10 MG TABLET PO SCH (21:52)
[2017-01-09] MEDS: SODIUM CHLORIDE NASAL SPRAY 44 ML BOTTLE NS PRN (21:53)
[2017-01-10] MEDS: FERROUS SO4 325 MG TABLET (FP) PO SCH ×3 (07:09→16:35)
[2017-01-10] MEDS: BUDESONIDE/FORMETEROL FUMARATE 80/4.5 mcg INHALER IH SCH ×2 (10:02→21:38)
[2017-01-10] MEDS: PRENATAL VITAMINS W/ FOLIC ACID TABLET (FP) PO SCH (10:02)
[2017-01-10] MEDS: SODIUM CHLORIDE NASAL SPRAY 44 ML BOTTLE NS PRN ×2 (10:02→21:39)
[2017-01-10] MEDS: amLODIPine BESYLATE 10 MG TABLET (FP) PO SCH (10:02)
[2017-01-10] MEDS: RANITIDINE HCL 150 MG TABLET (FP) PO SCH ×2 (10:02→21:37)
[2017-01-10] MEDS: TOLNAFTATE 1% CREAM 15 GM TUBE TP SCH ×2 (10:02→21:38)
[2017-01-10] MEDS: NICOTINE 21 MG/24 HOURS TOPICAL PATCH TD SCH (10:02)
[2017-01-10] MEDS: DOCUSATE SODIUM 100 MG CAPSULE (FP) PO SCH (21:37)
[2017-01-10] MEDS: MONTELUKAST NA 10 MG TABLET PO SCH (21:37)
[2017-01-10] MEDS: THIAMINE HCL 100 MG TABLET (FP) PO SCH (21:37)
[2017-01-10] MEDS: diphenhydrAMINE HCL 50 MG CAPSULE PO PRN (21:37)
[2017-01-11] MEDS: hydrOXYzine PAMOATE 50 MG CAPSULE (FP) PO PRN (00:40)
[2017-01-11] MEDS: FERROUS SO4 325 MG TABLET (FP) PO SCH ×3 (07:51→16:38)
[2017-01-11] MEDS: BUDESONIDE/FORMETEROL FUMARATE 80/4.5 mcg INHALER IH SCH ×2 (10:18→21:55)
[2017-01-11] MEDS: NICOTINE 21 MG/24 HOURS TOPICAL PATCH TD SCH (10:18)
[2017-01-11] MEDS: amLODIPine BESYLATE 10 MG TABLET (FP) PO SCH (10:18)
[2017-01-11] MEDS: SODIUM CHLORIDE NASAL SPRAY 44 ML BOTTLE NS PRN ×2 (10:18→21:55)
[2017-01-11] MEDS: TOLNAFTATE 1% CREAM 15 GM TUBE TP SCH ×2 (10:18→21:55)
[2017-01-11] MEDS: RANITIDINE HCL 150 MG TABLET (FP) PO SCH ×2 (10:18→21:54)
[2017-01-11] MEDS: PRENATAL VITAMINS W/ FOLIC ACID TABLET (FP) PO SCH (10:18)
[2017-01-11] MEDS: DOCUSATE SODIUM 100 MG CAPSULE (FP) PO SCH (21:53)
[2017-01-11] MEDS: diphenhydrAMINE HCL 50 MG CAPSULE PO PRN (21:54)
[2017-01-11] MEDS: THIAMINE HCL 100 MG TABLET (FP) PO SCH (21:54)
[2017-01-11] MEDS: MONTELUKAST NA 10 MG TABLET PO SCH (21:54)
[2017-01-12] MEDS: hydrOXYzine PAMOATE 50 MG CAPSULE (FP) PO PRN ×2 (00:26→22:07)
[2017-01-12] MEDS: FERROUS SO4 325 MG TABLET (FP) PO SCH ×3 (07:57→16:42)
[2017-01-12] MEDS: SODIUM CHLORIDE NASAL SPRAY 44 ML BOTTLE NS PRN ×2 (10:31→22:07)
[2017-01-12] MEDS: RANITIDINE HCL 150 MG TABLET (FP) PO SCH ×2 (10:32→22:05)
[2017-01-12] MEDS: PRENATAL VITAMINS W/ FOLIC ACID TABLET (FP) PO SCH (10:32)
[2017-01-12] MEDS: amLODIPine BESYLATE 10 MG TABLET (FP) PO SCH (10:33)
[2017-01-12] MEDS: BUDESONIDE/FORMETEROL FUMARATE 80/4.5 mcg INHALER IH SCH ×2 (10:33→22:06)
[2017-01-12] MEDS: TOLNAFTATE 1% CREAM 15 GM TUBE TP SCH ×2 (10:33→22:06)
[2017-01-12] MEDS: NICOTINE 21 MG/24 HOURS TOPICAL PATCH TD SCH (10:33)
[2017-01-12] MEDS: COLLOIDAL OATMEAL 1 BAR EACH TP PRN (14:26)
[2017-01-12] MEDS: THIAMINE HCL 100 MG TABLET (FP) PO SCH (22:05)
[2017-01-12] MEDS: MONTELUKAST NA 10 MG TABLET PO SCH (22:05)
[2017-01-12] MEDS: DOCUSATE SODIUM 100 MG CAPSULE (FP) PO SCH (22:05)
[2017-01-13] MEDS: FERROUS SO4 325 MG TABLET (FP) PO SCH ×3 (07:30→16:46)
[2017-01-13] MEDS: amLODIPine BESYLATE 10 MG TABLET (FP) PO SCH (10:22)
[2017-01-13] MEDS: SODIUM CHLORIDE NASAL SPRAY 44 ML BOTTLE NS PRN ×2 (10:22→21:40)
[2017-01-13] MEDS: BUDESONIDE/FORMETEROL FUMARATE 80/4.5 mcg INHALER IH SCH ×2 (10:22→21:38)
[2017-01-13] MEDS: PRENATAL VITAMINS W/ FOLIC ACID TABLET (FP) PO SCH (10:22)
[2017-01-13] MEDS: RANITIDINE HCL 150 MG TABLET (FP) PO SCH ×2 (10:22→21:37)
[2017-01-13] MEDS: NICOTINE 21 MG/24 HOURS TOPICAL PATCH TD SCH (10:23)
[2017-01-13] MEDS: TOLNAFTATE 1% CREAM 15 GM TUBE TP SCH ×2 (10:23→21:38)
[2017-01-13] MEDS: MONTELUKAST NA 10 MG TABLET PO SCH (21:37)
[2017-01-13] MEDS: THIAMINE HCL 100 MG TABLET (FP) PO SCH (21:37)
[2017-01-13] MEDS: DOCUSATE SODIUM 100 MG CAPSULE (FP) PO SCH (21:37)
[2017-01-13] MEDS: hydrOXYzine PAMOATE 50 MG CAPSULE (FP) PO PRN (21:38)
[2017-01-14] MEDS: diphenhydrAMINE HCL 50 MG CAPSULE PO PRN (00:17)
[2017-01-14] MEDS: FERROUS SO4 325 MG TABLET (FP) PO SCH ×3 (07:35→17:02)
[2017-01-14] MEDS: SODIUM CHLORIDE NASAL SPRAY 44 ML BOTTLE NS PRN ×2 (10:28→21:39)
[2017-01-14] MEDS: PRENATAL VITAMINS W/ FOLIC ACID TABLET (FP) PO SCH (10:29)
[2017-01-14] MEDS: RANITIDINE HCL 150 MG TABLET (FP) PO SCH ×2 (10:29→21:38)
[2017-01-14] MEDS: amLODIPine BESYLATE 10 MG TABLET (FP) PO SCH (10:29)
[2017-01-14] MEDS: BUDESONIDE/FORMETEROL FUMARATE 80/4.5 mcg INHALER IH SCH ×2 (10:29→21:38)
[2017-01-14] MEDS: NICOTINE 21 MG/24 HOURS TOPICAL PATCH TD SCH (10:30)
[2017-01-14] MEDS: TOLNAFTATE 1% CREAM 15 GM TUBE TP SCH ×2 (10:30→21:39)
[2017-01-14] MEDS: ALBUTEROL SO4 18 GM HFA INHALER IH PRN (12:56)
[2017-01-14] MEDS: DOCUSATE SODIUM 100 MG CAPSULE (FP) PO SCH (21:38)
[2017-01-14] MEDS: MONTELUKAST NA 10 MG TABLET PO SCH (21:38)
[2017-01-14] MEDS: THIAMINE HCL 100 MG TABLET (FP) PO SCH (21:38)
[2017-01-14] MEDS: hydrOXYzine PAMOATE 50 MG CAPSULE (FP) PO PRN (21:39)
[2017-01-15] MEDS: diphenhydrAMINE HCL 50 MG CAPSULE PO PRN (00:16)
[2017-01-15] MEDS: FERROUS SO4 325 MG TABLET (FP) PO SCH ×3 (07:41→16:40)
[2017-01-15] MEDS: amLODIPine BESYLATE 10 MG TABLET (FP) PO SCH (10:33)
[2017-01-15] MEDS: NICOTINE 21 MG/24 HOURS TOPICAL PATCH TD SCH (10:33)
[2017-01-15] MEDS: RANITIDINE HCL 150 MG TABLET (FP) PO SCH ×2 (10:34→21:55)
[2017-01-15] MEDS: TOLNAFTATE 1% CREAM 15 GM TUBE TP SCH ×2 (10:34→21:55)
[2017-01-15] MEDS: BUDESONIDE/FORMETEROL FUMARATE 80/4.5 mcg INHALER IH SCH ×2 (10:34→21:55)
[2017-01-15] MEDS: PRENATAL VITAMINS W/ FOLIC ACID TABLET (FP) PO SCH (10:34)
[2017-01-15] MEDS: SODIUM CHLORIDE NASAL SPRAY 44 ML BOTTLE NS PRN ×2 (10:35→21:55)
[2017-01-15] MEDS: THIAMINE HCL 100 MG TABLET (FP) PO SCH (21:54)
[2017-01-15] MEDS: DOCUSATE SODIUM 100 MG CAPSULE (FP) PO SCH (21:55)
[2017-01-15] MEDS: MONTELUKAST NA 10 MG TABLET PO SCH (21:55)
[2017-01-15] MEDS: hydrOXYzine PAMOATE 50 MG CAPSULE (FP) PO PRN (21:56)
[2017-01-16] MEDS: diphenhydrAMINE HCL 50 MG CAPSULE PO PRN (00:21)
[2017-01-16] MEDS: SODIUM CHLORIDE NASAL SPRAY 44 ML BOTTLE NS PRN ×2 (00:21→22:16)
[2017-01-16] MEDS: FERROUS SO4 325 MG TABLET (FP) PO SCH ×3 (07:10→17:12)
[2017-01-16] MEDS ORDERED: PT OWN MED DRAWER 7, Y5N ONE (08:33)
[2017-01-16] MEDS: ALBUTEROL SO4 18 GM HFA INHALER IH PRN (08:34)
[2017-01-16] MEDS: amLODIPine BESYLATE 10 MG TABLET (FP) PO SCH (10:43)
[2017-01-16] MEDS: RANITIDINE HCL 150 MG TABLET (FP) PO SCH ×2 (10:43→22:12)
[2017-01-16] MEDS: NICOTINE 21 MG/24 HOURS TOPICAL PATCH TD SCH (10:43)
[2017-01-16] MEDS: PRENATAL VITAMINS W/ FOLIC ACID TABLET (FP) PO SCH (10:43)
[2017-01-16] MEDS: TOLNAFTATE 1% CREAM 15 GM TUBE TP SCH ×2 (10:44→22:14)
[2017-01-16] MEDS: BUDESONIDE/FORMETEROL FUMARATE 80/4.5 mcg INHALER IH SCH ×2 (10:44→22:13)
[2017-01-16] MEDS: MONTELUKAST NA 10 MG TABLET PO SCH (22:12)
[2017-01-16] MEDS: DOCUSATE SODIUM 100 MG CAPSULE (FP) PO SCH (22:12)
[2017-01-16] MEDS: THIAMINE HCL 100 MG TABLET (FP) PO SCH (22:13)
[2017-01-16] MEDS: hydrOXYzine PAMOATE 50 MG CAPSULE (FP) PO PRN (22:15)
[2017-01-17] MEDS: diphenhydrAMINE HCL 50 MG CAPSULE PO PRN (00:25)
[2017-01-17] MEDS: FERROUS SO4 325 MG TABLET (FP) PO SCH ×3 (07:07→17:20)
[2017-01-17] MEDS: PRENATAL VITAMINS W/ FOLIC ACID TABLET (FP) PO SCH (10:24)
[2017-01-17] MEDS: amLODIPine BESYLATE 10 MG TABLET (FP) PO SCH (10:24)
[2017-01-17] MEDS: RANITIDINE HCL 150 MG TABLET (FP) PO SCH ×2 (10:24→21:51)
[2017-01-17] MEDS: BUDESONIDE/FORMETEROL FUMARATE 80/4.5 mcg INHALER IH SCH ×2 (10:24→21:52)
[2017-01-17] MEDS: NICOTINE 21 MG/24 HOURS TOPICAL PATCH TD SCH (10:24)
[2017-01-17] MEDS: SODIUM CHLORIDE NASAL SPRAY 44 ML BOTTLE NS PRN ×2 (10:25→21:52)
[2017-01-17] MEDS: TOLNAFTATE 1% CREAM 15 GM TUBE TP SCH ×2 (10:26→21:55)
[2017-01-17] MEDS: DOCUSATE SODIUM 100 MG CAPSULE (FP) PO SCH (21:51)
[2017-01-17] MEDS: hydrOXYzine PAMOATE 50 MG CAPSULE (FP) PO PRN (21:52)
[2017-01-17] MEDS: MONTELUKAST NA 10 MG TABLET PO SCH (21:53)
[2017-01-17] MEDS: THIAMINE HCL 100 MG TABLET (FP) PO SCH (21:55)
[2017-01-18] MEDS: diphenhydrAMINE HCL 50 MG CAPSULE PO PRN (00:27)
[2017-01-18] MEDS: FERROUS SO4 325 MG TABLET (FP) PO SCH ×3 (07:49→16:39)
[2017-01-18] MEDS: RANITIDINE HCL 150 MG TABLET (FP) PO SCH ×2 (10:39→22:03)
[2017-01-18] MEDS: NICOTINE 21 MG/24 HOURS TOPICAL PATCH TD SCH (10:39)
[2017-01-18] MEDS: PRENATAL VITAMINS W/ FOLIC ACID TABLET (FP) PO SCH (10:39)
[2017-01-18] MEDS: amLODIPine BESYLATE 10 MG TABLET (FP) PO SCH (10:39)
[2017-01-18] MEDS: BUDESONIDE/FORMETEROL FUMARATE 80/4.5 mcg INHALER IH SCH ×2 (10:41→22:03)
[2017-01-18] MEDS: SODIUM CHLORIDE NASAL SPRAY 44 ML BOTTLE NS PRN ×2 (10:41→22:04)
[2017-01-18] MEDS: TOLNAFTATE 1% CREAM 15 GM TUBE TP SCH ×2 (10:42→22:05)
[2017-01-18] MEDS: IBUPROFEN 400 MG TABLET (FP) PO PRN (16:41)
[2017-01-18] MEDS: THIAMINE HCL 100 MG TABLET (FP) PO SCH (22:03)
[2017-01-18] MEDS: DOCUSATE SODIUM 100 MG CAPSULE (FP) PO SCH (22:03)
[2017-01-18] MEDS: MONTELUKAST NA 10 MG TABLET PO SCH (22:03)
[2017-01-18] MEDS: hydrOXYzine PAMOATE 50 MG CAPSULE (FP) PO PRN (22:05)
[2017-01-19] MEDS: FERROUS SO4 325 MG TABLET (FP) PO SCH ×3 (07:12→18:06)
[2017-01-19] MEDS: RANITIDINE HCL 150 MG TABLET (FP) PO SCH ×2 (10:18→21:58)
[2017-01-19] MEDS: BUDESONIDE/FORMETEROL FUMARATE 80/4.5 mcg INHALER IH SCH ×2 (10:18→21:59)
[2017-01-19] MEDS: SODIUM CHLORIDE NASAL SPRAY 44 ML BOTTLE NS PRN ×2 (10:18→21:59)
[2017-01-19] MEDS: PRENATAL VITAMINS W/ FOLIC ACID TABLET (FP) PO SCH (10:18)
[2017-01-19] MEDS: amLODIPine BESYLATE 10 MG TABLET (FP) PO SCH (10:18)
[2017-01-19] MEDS: NICOTINE 21 MG/24 HOURS TOPICAL PATCH TD SCH (10:19)
[2017-01-19] MEDS: TOLNAFTATE 1% CREAM 15 GM TUBE TP SCH ×2 (10:19→22:00)
--- NOTE | 2017-01-19 11:18 | PN ---
[facility] Progress Note (SOAP) Subjective: c/o dizziness when geting quickly out of bed, has had conssitantly elevated BP Objective: 01/19/17 11:17 Vital Signs - 8 hr 01/19/17 01/19/17 01/19/17 03:30 06:00 10:00 Temperature 98.0 F Pulse Rate 85 95 H Respiratory 20 18 Rate Blood Pressure 130/96 148/99 a and ox3, NAD, PARAMJIT chest clear , s1 and s2 no edema Assessment: 01/19/17 11:17 essential htn, orthostatic htn Plan: add HCTZ to medication regimen, monitor bp, slowly get out of bed
[2017-01-19] MEDS: HYDROCHLOROTHIAZIDE 12.5 MG CAPSULE (FP) PO SCH (12:59)
[2017-01-19] MEDS: hydrOXYzine PAMOATE 50 MG CAPSULE (FP) PO PRN (21:58)
[2017-01-19] MEDS: DOCUSATE SODIUM 100 MG CAPSULE (FP) PO SCH (21:58)
[2017-01-19] MEDS: THIAMINE HCL 100 MG TABLET (FP) PO SCH (21:58)
[2017-01-19] MEDS: MONTELUKAST NA 10 MG TABLET PO SCH (22:01)
[2017-01-20] MEDS: SODIUM CHLORIDE NASAL SPRAY 44 ML BOTTLE NS PRN ×3 (00:49→21:37)
[2017-01-20] MEDS: FERROUS SO4 325 MG TABLET (FP) PO SCH ×4 (07:10→16:49)
[2017-01-20 10:03] LABS: EOSINOPHIL 3.5 % (0-4.5); MCHC 30.3 g/dl (32.0-35.9); MEAN CELL VOLUME 72.5 fl (80-96); MEAN PLT VOLUME 8.4 fl (7.5-11.1); PLATELET COUNT 294 K/MM3 (134-434); RDW 26.3 % (11.9-15.9); WHITE BLOOD COUNT 4.8 K/mm3 (4.0-10.0)
[2017-01-20] MEDS: HYDROCHLOROTHIAZIDE 12.5 MG CAPSULE (FP) PO SCH (10:25)
[2017-01-20] MEDS: RANITIDINE HCL 150 MG TABLET (FP) PO SCH ×2 (10:25→21:36)
[2017-01-20] MEDS: PRENATAL VITAMINS W/ FOLIC ACID TABLET (FP) PO SCH (10:25)
[2017-01-20] MEDS: BUDESONIDE/FORMETEROL FUMARATE 80/4.5 mcg INHALER IH SCH ×2 (10:26→21:37)
[2017-01-20] MEDS: amLODIPine BESYLATE 10 MG TABLET (FP) PO SCH (10:26)
[2017-01-20] MEDS: TOLNAFTATE 1% CREAM 15 GM TUBE TP SCH ×2 (10:27→21:37)
[2017-01-20] MEDS: NICOTINE 21 MG/24 HOURS TOPICAL PATCH TD SCH (10:27)
[2017-01-20 10:39] LABS: ALBUMIN 3.7 g/dl (3.4-5.0); ALK PHOS 105 U/L (45-117); ANION GAP 9 (8-16); BILIRUBIN,TOTAL 0.5 mg/dL (0.2-1.0); CALCIUM 8.9 mg/dL (8.5-10.1); CO2 27 mmol/L (21-32); CREATININE 1.2 mg/dL (0.7-1.3); GLUCOSE,RANDOM 78 mg/dL (74-106); SGOT/AST 18 U/L (15-37); SGPT/ALT 44 U/L (12-78); TOT PROT 7.5 g/dl (6.4-8.2)
[2017-01-20 12:13] LABS: ANISOCYTOSIS 3+; HYPOCHROMIA 3+; MICROCYTOSIS 2+; TARGET CELLS 2+
[2017-01-20] MEDS: ALBUTEROL SO4 18 GM HFA INHALER IH PRN (19:03)
[2017-01-20] MEDS: hydrOXYzine PAMOATE 50 MG CAPSULE (FP) PO PRN (21:36)
[2017-01-20] MEDS: MONTELUKAST NA 10 MG TABLET PO SCH (21:36)
[2017-01-20] MEDS: THIAMINE HCL 100 MG TABLET (FP) PO SCH (21:36)
[2017-01-20] MEDS: DOCUSATE SODIUM 100 MG CAPSULE (FP) PO SCH (21:36)
[2017-01-21] MEDS: NICOTINE 21 MG/24 HOURS TOPICAL PATCH TD SCH (10:24)
[2017-01-21] MEDS: amLODIPine BESYLATE 10 MG TABLET (FP) PO SCH (10:24)
[2017-01-21] MEDS: SODIUM CHLORIDE NASAL SPRAY 44 ML BOTTLE NS PRN ×2 (10:24→23:45)
[2017-01-21] MEDS: RANITIDINE HCL 150 MG TABLET (FP) PO SCH ×2 (10:24→21:27)
[2017-01-21] MEDS: HYDROCHLOROTHIAZIDE 12.5 MG CAPSULE (FP) PO SCH (10:24)
[2017-01-21] MEDS: PRENATAL VITAMINS W/ FOLIC ACID TABLET (FP) PO SCH (10:24)
[2017-01-21] MEDS: BUDESONIDE/FORMETEROL FUMARATE 80/4.5 mcg INHALER IH SCH ×2 (10:25→21:27)
[2017-01-21] MEDS: TOLNAFTATE 1% CREAM 15 GM TUBE TP SCH ×2 (10:25→21:28)
[2017-01-21] MEDS: FERROUS SO4 325 MG TABLET (FP) PO SCH ×3 (12:04→16:54)
--- NOTE | 2017-01-21 15:23 | PN ---
[facility] Progress Note (SOAP) Subjective: feeling much better no dizziness, bp controlled with HCTZ Objective: 01/21/17 15:22 Vital Signs - 8 hr 01/21/17 01/21/17 07:53 10:00 Temperature 98.4 F Pulse Rate 90 102 H Respiratory 20 Rate Blood Pressure 132/84 137/78 Laboratory Tests 01/20/17 01/20/17 07:30 07:30 WBC 4.8 RBC 4.70 Hgb 10.3 L D Hct 34.1 L D MCV 72.5 L MCH 22.0 L MCHC 30.3 L RDW 26.3 H Plt Count 294 MPV 8.4 Neutrophils % 54.0 Lymphocytes % 28.4 Monocytes % 13.1 H Eosinophils % 3.5 Basophils % 1.0 Hypochromia 3+ Anisocytosis 3+ Microcytosis 2+ Target Cells 2+ Sodium 140 Potassium 3.8 Chloride 104 Carbon Dioxide 27 Anion Gap 9 BUN 14 Creatinine 1.2 Creat Clearance w eGFR > 60 Random Glucose 78 Calcium 8.9 Total Bilirubin 0.5 D AST 18 D ALT 44 D Alkaline Phosphatase 105 D Total Protein 7.5 Albumin 3.7 microcytic anemia Assessment: 01/21/17 15:22 cont bp meds for htn, iron pills for anemia
[2017-01-21] MEDS: THIAMINE HCL 100 MG TABLET (FP) PO SCH (21:27)
[2017-01-21] MEDS: DOCUSATE SODIUM 100 MG CAPSULE (FP) PO SCH (21:27)
[2017-01-21] MEDS: hydrOXYzine PAMOATE 50 MG CAPSULE (FP) PO PRN (21:27)
[2017-01-21] MEDS: MONTELUKAST NA 10 MG TABLET PO SCH (21:27)
[2017-01-22] MEDS: FERROUS SO4 325 MG TABLET (FP) PO SCH ×3 (07:59→16:34)
[2017-01-22] MEDS: RANITIDINE HCL 150 MG TABLET (FP) PO SCH ×2 (10:31→21:37)
[2017-01-22] MEDS: TOLNAFTATE 1% CREAM 15 GM TUBE TP SCH ×2 (10:31→21:37)
[2017-01-22] MEDS: NICOTINE 21 MG/24 HOURS TOPICAL PATCH TD SCH (10:31)
[2017-01-22] MEDS: amLODIPine BESYLATE 10 MG TABLET (FP) PO SCH (10:31)
[2017-01-22] MEDS: PRENATAL VITAMINS W/ FOLIC ACID TABLET (FP) PO SCH (10:31)
[2017-01-22] MEDS: HYDROCHLOROTHIAZIDE 12.5 MG CAPSULE (FP) PO SCH (10:31)
[2017-01-22] MEDS: BUDESONIDE/FORMETEROL FUMARATE 80/4.5 mcg INHALER IH SCH ×2 (10:31→21:37)
[2017-01-22] MEDS: SODIUM CHLORIDE NASAL SPRAY 44 ML BOTTLE NS PRN ×2 (10:32→21:38)
[2017-01-22] MEDS: COLLOIDAL OATMEAL 1 BAR EACH TP PRN (10:43)
[2017-01-22] MEDS: IBUPROFEN 400 MG TABLET (FP) PO PRN (16:32)
[2017-01-22] MEDS: ALBUTEROL SO4 18 GM HFA INHALER IH PRN (18:44)
[2017-01-22] MEDS: THIAMINE HCL 100 MG TABLET (FP) PO SCH (21:36)
[2017-01-22] MEDS: MONTELUKAST NA 10 MG TABLET PO SCH (21:37)
[2017-01-22] MEDS: DOCUSATE SODIUM 100 MG CAPSULE (FP) PO SCH (21:37)
[2017-01-22] MEDS: hydrOXYzine PAMOATE 50 MG CAPSULE (FP) PO PRN (21:38)
[2017-01-23] MEDS: FERROUS SO4 325 MG TABLET (FP) PO SCH ×3 (07:14→17:00)
[2017-01-23] MEDS: SODIUM CHLORIDE NASAL SPRAY 44 ML BOTTLE NS PRN ×2 (10:28→21:44)
[2017-01-23] MEDS: BUDESONIDE/FORMETEROL FUMARATE 80/4.5 mcg INHALER IH SCH ×2 (10:29→21:44)
[2017-01-23] MEDS: amLODIPine BESYLATE 10 MG TABLET (FP) PO SCH (10:29)
[2017-01-23] MEDS: PRENATAL VITAMINS W/ FOLIC ACID TABLET (FP) PO SCH (10:29)
[2017-01-23] MEDS: RANITIDINE HCL 150 MG TABLET (FP) PO SCH ×2 (10:29→21:43)
[2017-01-23] MEDS: NICOTINE 21 MG/24 HOURS TOPICAL PATCH TD SCH (10:29)
[2017-01-23] MEDS: HYDROCHLOROTHIAZIDE 12.5 MG CAPSULE (FP) PO SCH (10:29)
[2017-01-23] MEDS: TOLNAFTATE 1% CREAM 15 GM TUBE TP SCH ×2 (10:29→21:49)
[2017-01-23] MEDS: DOCUSATE SODIUM 100 MG CAPSULE (FP) PO SCH (21:43)
[2017-01-23] MEDS: MONTELUKAST NA 10 MG TABLET PO SCH (21:43)
[2017-01-23] MEDS: hydrOXYzine PAMOATE 50 MG CAPSULE (FP) PO PRN (21:43)
[2017-01-23] MEDS: THIAMINE HCL 100 MG TABLET (FP) PO SCH (21:44)
[2017-01-24] MEDS: FERROUS SO4 325 MG TABLET (FP) PO SCH ×3 (07:40→17:10)
[2017-01-24] MEDS ORDERED: MAGNESIUM CITRATE 300 ML BOTTLE PO PRN (10:09)
[2017-01-24] MEDS: BUDESONIDE/FORMETEROL FUMARATE 80/4.5 mcg INHALER IH SCH ×2 (10:22→21:34)
[2017-01-24] MEDS: RANITIDINE HCL 150 MG TABLET (FP) PO SCH ×2 (10:22→21:34)
[2017-01-24] MEDS: amLODIPine BESYLATE 10 MG TABLET (FP) PO SCH (10:22)
[2017-01-24] MEDS: PRENATAL VITAMINS W/ FOLIC ACID TABLET (FP) PO SCH (10:22)
[2017-01-24] MEDS: SODIUM CHLORIDE NASAL SPRAY 44 ML BOTTLE NS PRN ×2 (10:22→21:35)
[2017-01-24] MEDS: HYDROCHLOROTHIAZIDE 12.5 MG CAPSULE (FP) PO SCH (10:22)
[2017-01-24] MEDS: NICOTINE 21 MG/24 HOURS TOPICAL PATCH TD SCH (10:23)
[2017-01-24] MEDS: TOLNAFTATE 1% CREAM 15 GM TUBE TP SCH ×2 (10:23→21:35)
[2017-01-24] MEDS: THIAMINE HCL 100 MG TABLET (FP) PO SCH (21:34)
[2017-01-24] MEDS: MONTELUKAST NA 10 MG TABLET PO SCH (21:34)
[2017-01-24] MEDS: hydrOXYzine PAMOATE 50 MG CAPSULE (FP) PO PRN (21:34)
[2017-01-24] MEDS: DOCUSATE SODIUM 100 MG CAPSULE (FP) PO SCH (21:34)
[2017-01-25] MEDS: FERROUS SO4 325 MG TABLET (FP) PO SCH ×3 (07:04→16:34)
[2017-01-25] MEDS: RANITIDINE HCL 150 MG TABLET (FP) PO SCH ×2 (10:19→21:49)
[2017-01-25] MEDS: NICOTINE 21 MG/24 HOURS TOPICAL PATCH TD SCH (10:19)
[2017-01-25] MEDS: TOLNAFTATE 1% CREAM 15 GM TUBE TP SCH ×2 (10:19→21:51)
[2017-01-25] MEDS: PRENATAL VITAMINS W/ FOLIC ACID TABLET (FP) PO SCH (10:19)
[2017-01-25] MEDS: HYDROCHLOROTHIAZIDE 12.5 MG CAPSULE (FP) PO SCH (10:19)
[2017-01-25] MEDS: SODIUM CHLORIDE NASAL SPRAY 44 ML BOTTLE NS PRN ×2 (10:19→21:50)
[2017-01-25] MEDS: BUDESONIDE/FORMETEROL FUMARATE 80/4.5 mcg INHALER IH SCH ×2 (10:19→21:50)
[2017-01-25] MEDS: amLODIPine BESYLATE 10 MG TABLET (FP) PO SCH (10:19)
[2017-01-25] MEDS: IBUPROFEN 400 MG TABLET (FP) PO PRN (10:20)
[2017-01-25] MEDS: MONTELUKAST NA 10 MG TABLET PO SCH (21:49)
[2017-01-25] MEDS: THIAMINE HCL 100 MG TABLET (FP) PO SCH (21:49)
[2017-01-25] MEDS: DOCUSATE SODIUM 100 MG CAPSULE (FP) PO SCH (21:49)
[2017-01-25] MEDS: hydrOXYzine PAMOATE 50 MG CAPSULE (FP) PO PRN (21:50)
[2017-01-26] MEDS: FERROUS SO4 325 MG TABLET (FP) PO SCH ×3 (07:47→16:32)
[2017-01-26] MEDS: BUDESONIDE/FORMETEROL FUMARATE 80/4.5 mcg INHALER IH SCH ×2 (10:56→21:50)
[2017-01-26] MEDS: RANITIDINE HCL 150 MG TABLET (FP) PO SCH ×2 (10:56→21:49)
[2017-01-26] MEDS: HYDROCHLOROTHIAZIDE 12.5 MG CAPSULE (FP) PO SCH (10:56)
[2017-01-26] MEDS: amLODIPine BESYLATE 10 MG TABLET (FP) PO SCH (10:56)
[2017-01-26] MEDS: PRENATAL VITAMINS W/ FOLIC ACID TABLET (FP) PO SCH (10:56)
[2017-01-26] MEDS: SODIUM CHLORIDE NASAL SPRAY 44 ML BOTTLE NS PRN ×2 (10:57→21:50)
[2017-01-26] MEDS: NICOTINE 21 MG/24 HOURS TOPICAL PATCH TD SCH (10:57)
[2017-01-26] MEDS: TOLNAFTATE 1% CREAM 15 GM TUBE TP SCH ×2 (10:57→21:51)
--- NOTE | 2017-01-26 14:31 | PN ---
Psychiatric Progress Note Vital Signs: Vital Signs Period Temp Pulse Resp BP Sys/[place] Pulse Ox Last 24 Hr 98.2 F 90-96 18-20 134-134/87-95 Date of Session: 01/26/17 Chief Complaint:: discharge visit HPI: Patient is addressing alcohol, cannabis, nicotine dependence comorbid substance induced sleep disorder. ROS: asthma,hypertension medically managed. Current Medications: Active Medications Generic Name Dose Route Start Last Admin Trade Name Freq PRN Reason Stop Dose Admin Acetaminophen 650 mg 01/02/17 15:05 Tylenol - PO Q4H PRN FEVER OR PAIN Al Hydroxide/Mg Hydroxide 30 ml 01/02/17 15:05 Mylanta Oral Suspension - PO Q6H PRN DYSPEPSIA Albuterol Sulfate 2 puff 01/02/17 15:06 01/22/17 18:44 Ventolin Hfa Inhaler - IH 2 puff Q4H PRN Administration ASTHMA Amlodipine Besylate 10 mg 01/03/17 10:00 01/26/17 10:56 Norvasc - PO 10 mg DAILY LILIAN Administration Budesonide/Formoterol Fumarate 2 puff 01/02/17 22:00 01/26/17 10:56 Symbicort 80/4.5mcg - IH 2 puff BID LILIAN Administration Colloidal Oatmeal 1 applic 01/12/17 13:19 01/22/17 10:43 Aveeno Soap - TP 1 bar DAILY PRN Administration HYGEINE Diphenhydramine HCl 50 mg 01/02/17 15:05 01/18/17 00:27 Benadryl - PO 50 mg HSMR1 PRN Administration FOR ITCHING Docusate Sodium 300 mg 01/05/17 22:00 01/25/17 21:49 Colace - PO 300 mg HS LILIAN Administration Eucalyptus/Menthol/Phenol/Sorbitol 1 each 01/02/17 15:05 Cepastat Lozenge - MM Q4H PRN SORE THROAT Ferrous Sulfate 325 mg 01/05/17 17:30 01/26/17 12:30 Feosol - PO 325 mg TIDCM LILIAN Administration Guaifenesin 10 ml 01/02/17 15:05 Robitussin Dm - PO Q6H PRN COUGH Hydrochlorothiazide 12.5 mg 01/19/17 12:46 01/26/17 10:56 Hctz - PO 12.5 mg DAILY LILIAN Administration Hydroxyzine Pamoate 50 mg 01/02/17 15:05 01/25/17 21:50 Vistaril - PO 50 mg Q4H PRN Administration AGITATION Ibuprofen 400 mg 01/02/17 15:05 01/25/17 10:20 Motrin - PO 400 mg Q6H PRN Administration PAIN Loperamide HCl 4 mg 01/02/17 15:05 Imodium - PO Q6H PRN DIARRHEA Magnesium Citrate 300 ml 01/24/17 10:09 01/24/17 11:17 Citroma - PO 300 ml PRN PRN Administration CONSTIPATION Magnesium Hydroxide 30 ml 01/02/17 15:05 Milk Of Magnesia - PO DAILY PRN CONSTIPATION Montelukast Sodium 10 mg 01/02/17 22:00 01/25/17 21:49 Singulair - PO 10 mg HS LILIAN Administration Nicotine 21 mg 01/03/17 10:00 01/26/17 10:57 Nicoderm Patch - TD Not Given DAILY LILIAN Nicotine Polacrilex 2 mg 01/02/17 15:05 Nicorette Gum - BUC Q2H PRN NICOTINE REPLACEMENT RX Multivit/Folic Acid/Iron 1 tab 01/03/17 10:00 01/26/17 10:56 Vitamins (Sjr) - PO 1 tab DAILY LILIAN Administration Pseudoephedrine/Triprolidine 1 combo 01/02/17 15:05 Actifed - PO TID PRN NASAL CONGESTION Ranitidine HCl 150 mg 01/02/17 22:00 01/26/17 10:56 Zantac - PO 150 mg BID LILIAN Administration Sodium Chloride 2 spray 01/02/17 15:08 01/26/17 10:57 [place] - NS 2 spr BID PRN Administration NASAL CONGESTION Thiamine HCl 100 mg 01/02/17 22:00 01/25/17 21:49 Vitamin B1 - PO 100 mg HS LILIAN Administration Tolnaftate 1 applic 01/04/17 22:00 01/26/17 10:57 Tinactin 1% Cream - TP Not Given BID LILIAN Current Side Effect: No Lab tests ordered: No Lab tests reviewed: Yes Provider note:: Patient will complete his treatment and met his goals tomorrow on 01/27/17 and met his goals, will continue to address his issues at [facility] outpatient treatment program. Patient gained insights into his addiction and motivated to continue maintain abstinence, patient reports he learned a lot through this program, understands the negative impact of his addiction over his major life areas. Patient is stable for discharge tomorrow. Total face to face time:: 35 Mental Status Exam - Mental Status Exam Alert and Oriented to: Time, Place, Person Cognitive Function: Fair Patient Appearance: Well Groomed Mood: Hopeful Affect: Appropriate, Mood Congruent, Normal Range Patient Behavior: Appropriate, Cooperative Speech Pattern: Clear, Appropriate Voice Loudness: Normal Thought Process: Intact, Goal Oriented Thought Disorder: Not Present Hallucinations: Denies Suicidal Ideation: Denies Homicidal Ideation: Denies Insight/Judgement: Fair Sleep: Fair Appetite: Fair Muscle strength/Tone: Normal Gait/Station: Normal Psychiatric Treatment Plan - Problem List (1) Alcohol dependence Current Visit: Yes (2) Substance-induced sleep disorder Current Visit: Yes (3) Cannabis dependence Current Visit: No (4) Nicotine dependence Current Visit: No Qualifiers: Nicotine product type: cigarettes Substance use status: in withdrawal Qualified Code(s): F17.213 - Nicotine dependence, cigarettes, with withdrawal (5) Asthma Current Visit: No Qualifiers: Asthma severity: mild Asthma complication type: uncomplicated
[2017-01-26] MEDS: IBUPROFEN 400 MG TABLET (FP) PO PRN (15:34)
[2017-01-26] MEDS: THIAMINE HCL 100 MG TABLET (FP) PO SCH (21:49)
[2017-01-26] MEDS: DOCUSATE SODIUM 100 MG CAPSULE (FP) PO SCH (21:49)
[2017-01-26] MEDS: hydrOXYzine PAMOATE 50 MG CAPSULE (FP) PO PRN (21:49)
[2017-01-26] MEDS: MONTELUKAST NA 10 MG TABLET PO SCH (21:49)
[2017-01-27 07:07] VITALS: BP 130/89; PULSE 79; TEMP 97.8
[2017-01-27] MEDS: FERROUS SO4 325 MG TABLET (FP) PO SCH (07:55)
[2017-01-27] MEDS: amLODIPine BESYLATE 10 MG TABLET (FP) PO SCH (09:52)
[2017-01-27] MEDS: PRENATAL VITAMINS W/ FOLIC ACID TABLET (FP) PO SCH (09:52)
[2017-01-27] MEDS: NICOTINE 21 MG/24 HOURS TOPICAL PATCH TD SCH (09:52)
[2017-01-27] MEDS: RANITIDINE HCL 150 MG TABLET (FP) PO SCH (09:52)
[2017-01-27] MEDS: HYDROCHLOROTHIAZIDE 12.5 MG CAPSULE (FP) PO SCH (09:52)
[2017-01-27] MEDS: BUDESONIDE/FORMETEROL FUMARATE 80/4.5 mcg INHALER IH SCH (09:53)
[2017-01-27] MEDS: TOLNAFTATE 1% CREAM 15 GM TUBE TP SCH (09:53)
[2017-01-27] MEDS: SODIUM CHLORIDE NASAL SPRAY 44 ML BOTTLE NS PRN (09:53)
== END 2017-01-27 09:50 | disposition home or self-care (01) | DRG 772 ==
LOC: YASAS 12:28 → Y5N 12:29
PROVIDERS: ADMIT Psychiatry & Neurology Psychiatry; ATTEND Psychiatry & Neurology Psychiatry
PROC: HZ42ZZZ Group Counseling for Substance Abuse Treatment, Cognitive-Behavioral (ICD-10-PCS; principal; 2017-01-02)
DX: F10.20 Alcohol dependence, uncomplicated (principal); F12.20 Cannabis dependence, uncomplicated; F17.213 Nicotine dependence, cigarettes, with withdrawal; F19.282 Other psychoactive substance dependence with psychoactive substance-induced sleep disorder; J45.909 Unspecified asthma, uncomplicated
CPT/HCPCS: 36415; 80053; 85025